=== PATIENT | male | born 1975 | race Two or more races ===

== ENCOUNTER → 2018-07-24 | Outpatient (CLI) | payer OTHER ==
[2018-07-24 20:38] LABS: Percent Saturation 24.5 % (20.0-50.0)
== END | disposition home or self-care (01) ==
LOC: LAB SHORT 19:26 → LAB 19:26
PROVIDERS: Internal Medicine Hematology & Oncology
DX: D47.3 Essential (hemorrhagic) thrombocythemia (principal); E53.8 Deficiency of other specified B group vitamins
CPT/HCPCS: 82607; 82746; 83540; 83550

== ENCOUNTER 2019-02-17 08:48 | Emergency (ER) | payer OTHER ==
[~2019-02-17] VITALS: Ht 170.2 cm; Wt 79.4 kg
[2019-02-17] MEDS ORDERED: ALLEGRA ALLERG180 MG PO (09:18)
[2019-02-17 10:05] LABS: Calcium, Ionized (POC) 1.19 mmol/L (1.10-1.46); Chloride (POC) 102 mmol/L (98-108); Creatinine (POC) 1.1 mg/dL (0.8-1.3); Glucose (ISTAT POC) 99 mg/dL (70-99); Hemoglobin (POC) 15.6 g/dL (13.5-17.5); Potassium (POC) 4.4 mmol/L (3.5-5.5); Sodium (POC) 136 mmol/L (135-148); Total CO2 (POC) 26 mmol/L (21-32)
[2019-02-17] MEDS ORDERED: Percocet 5-3251 EACH PO (12:34)
== END 2019-02-17 12:53 | disposition home or self-care (01) ==
LOC: ER 08:48
PROVIDERS: Physician Assistant
DX: S22.20XA Unspecified fracture of sternum, initial encounter for closed fracture (principal); S01.312A Laceration without foreign body of left ear, initial encounter; S30.810A Abrasion of lower back and pelvis, initial encounter; S80.812A Abrasion, left lower leg, initial encounter; S30.811A Abrasion of abdominal wall, initial encounter; S20.312A Abrasion of left front wall of thorax, initial encounter; W17.89XA Other fall from one level to another, initial encounter; Y99.0 Civilian activity done for income or pay
CPT/HCPCS: 12013; 36415; 71260; 73060; 74177; 80047; 85014; 90471; 90714; 99284-25; Q9967

== ENCOUNTER 2019-05-04 11:52 | Day surgery (SDC) | payer OTHER ==
[~2019-05-04] VITALS: Ht 170.2 cm; Wt 85.9 kg
[~2019-05-04 11:52] MED LIST: ALLEGRA ALLERG180 MG PO; Percocet 5-3251 EACH PO
--- NOTE | 2019-05-04 15:17 | NUR ---
05/04/19 5987 Neena Barone PT IS RESTING IN THE RECLINER, ACCOMPANIED BY HIS . VSS. PT COMPLAINS OF 7/10 PAIN IN THE OP ARM HOWEVER FALLS ASLEEP EASILY BETWEEN CONVERSATIONS WITH . RN OFFERRED IV PAIN MEDICATIONS, NOT WANTED AT THIS TIME. RN TREATED PAIN WITH PO PAIN MEDICATIONS PER 'S ORDERS AT 1445. ICE IS APPLIED TO SITE AND OP ARM IS ELEVATED.
== END 2019-05-04 15:39 | disposition home or self-care (01) ==
LOC: ORSCSDS 11:52
PROVIDERS: Orthopaedic Surgery
PROC: 0PSL04Z Reposition Left Ulna with Internal Fixation Device, Open Approach (ICD-10-PCS; principal; 2019-05-04 13:30)
DX: S52.202A Unspecified fracture of shaft of left ulna, initial encounter for closed fracture (principal); J45.909 Unspecified asthma, uncomplicated
CPT/HCPCS: A9270-GY; C1713; J0171; J0690; J1100; J2250; J2405; J2704; J3010; J7120

== ENCOUNTER → 2019-06-02 | Outpatient (CLI) | payer OTHER ==
[2019-06-02 19:32] LABS: Percent Saturation 32.5 % (20.0-50.0)
== END | disposition home or self-care (01) ==
LOC: LAB 16:48 → LAB SHORT 16:48
PROVIDERS: Internal Medicine Hematology & Oncology
DX: D47.3 Essential (hemorrhagic) thrombocythemia (principal)
CPT/HCPCS: 83540; 83550